=== PATIENT | female | born 1955 | race Caucasian/White ===

== ENCOUNTER 2017-02-12 11:29 | Emergency (ER) | payer SELFPAY ==
[2017-02-12] MEDS ORDERED: LIPITOR80 M1 PO (11:33)
[2017-02-12] MEDS ORDERED: NEURONTIN600 M1 PO (11:34)
[2017-02-12] MEDS ORDERED: SYNTHROID100 MC1 PO (11:34)
[2017-02-12 12:09] LABS: URINE BILIRUBIN NEGATIVE (NEG); URINE BLOOD NEGATIVE (NEG); URINE GLUCOSE (UA) NEGATIVE (NEG); URINE KETONE NEGATIVE (NEG); URINE LEUKOCYTE ESTERASE NEGATIVE (NEG); URINE NITRITE NEGATIVE (NEG); URINE PROTEIN NEGATIVE (NEG)
[2017-02-12 12:11] LABS: URINE APPEARANCE CLEAR; URINE COLOR YELLOW
[2017-02-12 13:37] LABS: ANION GAP 12 mmol/L (0-20); BLOOD UREA NITROGEN 26 mg/dl (6-24); CARBON DIOXIDE-VENOUS 25 mmol/L (22-32); CHLORIDE 109 mmol/l (96-110); CREATININE 0.99 mg/dl (0.50-1.10); GLUCOSE 92 mg/dL (70-110); POTASSIUM 4.7 mmol/L (3.7-5.1); SODIUM 141 mmol/L (135-145); eGFR VALUE FOR BLACK 70 mL/Min
[2017-02-12] MEDS ORDERED: IBUPROFEN600 M1 PO (13:58)
[2017-02-12] MEDS ORDERED: NORCO 5/3251 TAB PO (13:58)
== END 2017-02-12 14:11 ==
LOC: EDMED 11:29
PROVIDERS: Emergency Medicine
DX: M54.32 Sciatica, left side (principal); E03.9 Hypothyroidism, unspecified; E78.5 Hyperlipidemia, unspecified; F17.210 Nicotine dependence, cigarettes, uncomplicated; Z79.899 Other long term (current) drug therapy